=== PATIENT | female | born 1955 | race Caucasian/White ===

== ENCOUNTER 2025-08-09 12:59 | Outpatient (REF) | payer MEDICARE, SELFPAY ==
[2025-08-09 15:16] LABS: Alanine Aminotransferase 11 U/L (0-31); Albumin Level 4.6 g/dL (3.5-5.0); Alkaline Phosphatase 77 U/L (39-117); Anion Gap 9 (12-20); Aspartate Amino Transferase 22 U/L (5-31); Blood Urea Nitrogen 21 mg/dL (9-16); Calcium 9.2 mg/dL (8.4-10.2); Carbon Dioxide 32 mmol/L (22-29); Chloride 103 mmol/L (96-108); Estimated Glomerular Filt Rate > 60; Potassium 5.1 mmol/L (3.3-5.1); Sodium 139 mmol/L (135-145); Total Protein 7.3 g/dL (6.5-8.0)
[2025-08-10 21:28] LABS: Lyme Abs Screen <0.90 index
== END 2025-08-09 13:00 | disposition home or self-care (01) ==
LOC: HO.LAB 12:59
PROVIDERS: PCP Internal Medicine; Visit Provider Psychiatry & Neurology Neurology
DX: G43.719 Chronic migraine without aura, intractable, without status migrainosus (principal); Z01.84 Encounter for antibody response examination; Z79.899 Other long term (current) drug therapy
CPT/HCPCS: 36415; 80053; 82550; 85652; 86141; 86617; 86618

== ENCOUNTER 2025-08-09 12:59 | Outpatient (AMB) | payer OTHER, SELFPAY ==
--- NOTE | 2025-08-09 13:03 | A.OFFVIS_ITS ---
Intake Visit Reasons: ENP-? Siz/Convulsion one mo ago Allergies sumatriptan (From Imitrex) Allergy (Severe, Verified 08/09/25 13:23) Anaphylaxis Medication List - Last Reconciled 08/09/25 by Lea Coyne MD atorvastatin 20 mg PO DAILY citalopram 40 mg PO DAILY citalopram 20 mg PO DAILY divalproex ER 500 mg PO DAILY donepezil 5 mg PO DAILY metoprolol succinate ER 25 mg PO DAILY omeprazole 20 mg PO DAILY HPI Comments Details: The patient is a 69-year-old female presenting with migraine headaches. She has experienced migraines for as long as she remembers, characterized by severe, pounding headaches that initiate on the right side and sometimes envelop the whole head. Occurring at least three times per week with each episode lasting one to two days, these migraines substantially impair her daily functioning. Laying down does not provide relief, and changes in posture do not alter the intensity. Prior medication attempts like Imitrex were stopped due to an anaphylactic reaction. Other drugs, including metoprolol, Depakote, and citalopram, have not provided sufficient relief. She recalls receiving a recommendation for Botox injections from Dr. Barbosa, but insurance limitations prevented their administration. The frequency of her headaches, as expressed, could reach up to 15 per month. Despite ongoing treatments, including a recent prescription for a nightly migraine medication, the impact on her life remains severe, with significant dizziness and nausea accompanying the pain. No brain MRI has been conducted to date. [facility] Medical History (Updated 08/09/25 @ 13:23 by Lea Coyne MD) Seizures Review of Systems Const Details: - Neurological: Reports migraine headaches, dizziness, memory issues - Ophthalmologic: Reports eye pain associated with migraines - Gastrointestinal: Reports nausea during migraines - Musculoskeletal: Denies widespread body pain; reports headache from neck upward - General: Reports frequent and debilitating headaches Physical Exam Neuro Other: Mental Status: Alert and oriented to person, place, and time. Normal attention. Normal spontaneous speech, fluency, and comprehension. Affect is flat and anxious. Cranial Nerves: CN II: Visual cheung full to confrontation, visual acuity intact. CN III, IV, : Pupils equal, round, reactive to light and accommodation. Extraocular movements are normal. CN V: Facial sensation is normal. CN VII: Facial movements symmetrical. CN VIII: Hearing intact to bedside conversation is normal. CN IX, X: Palate elevates symmetrically. CN XI: Shoulder shrug and head turn symmetrical. CN XII: Tongue midline without atrophy or fasciculations. Motor: Bulk and tone normal in all extremities. No significant muscle weakness in arms and legs. No drift. Reflexes: Deep tendon reflexes 2+ and symmetric. Plantar response down-going bilaterally. Slow and cautious gait. Extrapyramidal: Full facial expressions and blinking. No rigidity. Movements are appropriate with no tremor or abnormality. Speech: Normal; no dysarthria or tremor. Assessment & Plan Assessment & Plan (1) Chronic migraine without aura, intractable, without status migrainosus: Comment: Meds tried: Depakote, Metoprolol, Citaloprim, Imitrex (allergic), Code(s): G43.719 - Chronic migraine without aura, intractable, without status migrainosus Category: Medical Plan Impression recommendations: 69 years old woman with chronic migraine type of headaches occurring quite frequently. She had tried few medicines without relief. Initial testing was recommended in this type of patient especially in this age group to rule out any alternate etiologies. Depending upon results of these test, further management will be discuss next time. Orders: Orders MR head/brain wo/w con Today G43.719 - Chronic migraine without aura, intractable, without status migrainosus CRP High Sensitivity Today G43.719 - Chronic migraine without aura, intractable, without status migrainosus Creatine Kinase Total Today G43.719 - Chronic migraine without aura, intractable, without status migrainosus Erythrocyte Sedimentation Rate Today G43.719 - Chronic migraine without aura, intractable, without status migrainosus Lyme IgG/IgM w/reflex to WB Today G43.719 - Chronic migraine without aura, intractable, without status migrainosus Comprehensive Met. Panel Today G43.719 - Chronic migraine without aura, intractable, without status migrainosus Coding Level of Care Code New Pt Level 4 (45398) Diagnoses Chronic migraine without aura, intractable, without status migrainosus G43.71
--- OUTSIDE RECORDS SUMMARY | 2025-08-09 15:26 | XMS_ITS | Clinical Summary ---
Author Organization [facility] Address [address] [place] [address] Phone Care Team Providers Care Refractory Tile Helper Name Role Phone Keren Gates MD Primary Care Provider [phone] Surgical History Surgery Date Site/Laterality Comments BREAST LUMPECTOMY Medical History Medical History Date Comments Breast cancer ([facility] V24, [facility] V28) Social History Tobacco Use Types Packs/Day Years Used Date Smoking Tobacco: Never Assessed Comments No Sex and Gender Information Value Date Recorded Sex Assigned at Female 09/26/2024 3:05 PM EST Legal Sex Female 7:27 AM EST Gender Identity Female 09/26/2024 3:05 PM EST Sexual Orientation Straight 09/26/2024 3: 05 PM EST Obstetrics History Para Term AB IAB SAB Ectopic Multiple Livin g Live Births 3 Last Filed Vital Signs Vital Sign Reading Time Taken Comments Blood Pressure - - Pulse - - Temperature - - Respiratory Rate - - Oxygen Saturation - - Inhaled Oxygen Concentration - - Weight 51.3 kg (113 lb) 10/03/2024 3:03 PM EST Height 165.1 cm (5' 5 ) 10/03/2024 3:03 PM EST Body Mass Index 18.8 10/03/2024 3:03 PM EST Plan of Treatment Health Maintenance Due Date Last Done Comments Zoster Vaccines (1 of 2) 2006 Pneumococcal Vaccine: 50+ Years (2 of 2 - PCV) 09/01/2021 09/01/2020 Colorectal Cancer Screening: Colonoscopy 2022 Falls Risk Assessment 2022 Hepatitis C Screening 2022 Medicare Annual Wellness Visit 2022 Osteoporosis Screening (Bone Density Screening) 2022 Social Influencers of Health Screening 2022 Depression Screening 11/16/2024 COVID-19 Vaccine (3 - season) 2025 07/26/2021, 06/28/2021 Influenza Vaccine (#1) 2025 4, 08/07/2022, 09/02/2021, Additional history exists Breast Cancer Screening 10/03/2026 10/03/20 24, 03/11/2023, 05/24/2021 RSV Immunization Adult Patients (1 - 1-dose 75+ series) 2031 DTaP,Tdap,and Td Vaccines (2 - Td or Tdap) 08/28/2033 08/28/2023 HIB Vaccines Aged Out No longer eligi ble based on patient's age to complete this topic HPV Vaccines Aged Out No longer eligi ble based on patient's age to complete this topic Hepatitis A Vaccines Aged Out No long er eligible based on patient's age to complete this topic Hepatitis B Vaccines Aged Out No long er eligible based on patient's age to complete this topic IPV Vaccines Aged Out No longer eligi ble based on patient's age to complete this topic MMR Vaccines Aged Out No longer eligi ble based on patient's age to complete this topic Meningococcal ACWY Vaccine Aged Out N o longer eligible based on patient's age to complete this topic Meningococcal B Vaccine Aged Out No l onger eligible based on patient's age to complete this topic RSV Immunization Patients Under 20 months Aged Out No longer eligible based on patient's age to complete this topic Varicella Vaccines Aged Out No longer eligible based on patient's age to complete this topic Procedures Procedure Name Priority Date/Time Associated Diagnosis Comments MG MAMMO DIGITAL SCREENING W SHAUN BILAT Routine 10/03/2024 3:05 PM EST Encounter for screening mammogram for breast cancer from Last 3 Months or Most Recently Relevant to Health Maintenance Results * MG Mammo Digital Screening w Shaun bilat (10/03/2024 3:05 PM EST) Anatomical Region Laterality Modality Breast Bilateral Mammography 10/04/2024 10:1 8 AM EST Impressions 10/04/2024 10:23 AM EST No mammographic evidence of malignancy. A negative mammogram in the presence of a clinically suspicious palpable abnormality does not preclude the possibility of malignancy or alter the indications for biopsy. PQRI CPT II 3342F Code 87587, 99330 PQRI 225 CPT II 7025F TISSUE DENSITY: There are scattered areas of fibroglandular density. (BI-RADS category B) IMPRESSION: Benign. BI-RADS CATEGORY: 2 - BENIGN RECOMMENDATION: Screening bilateral mammogram is recommended in 1 year. Mammo Location: [facility], [address] [place] [address] -------- FINAL REPORT -------- Dictated By: Migue Walker Dictated Date: 10/04/2024 10:18 ET Assigned Physician: Migue Walker Reviewed and Electronically Signed By: Migue Walker Signed Date: 10/04/2024 10:23 ET Workstation ID: [id number] Transcribed By: Self Edit Transcribed Date: 10/04/2024 10:18 ET Narrative 10/04/2024 10:23 AM EST CLINICAL: The patient is a 68 years Female presenting for routine screening mammography. The patient has a personal history of left breast cancer treated with lumpectomy and radiation in 2001. The patient also has a family history of breast cancer involving an aunt. COMPARISON: Most recently 03/11/2023 and most remotely 08/24/2017. TECHNIQUE: Full-field digital mammography of the breasts bilaterally consisting of tomosynthesis in MLO and CC projection is performed in the [employer]ae 2000-D unit. Computer aided detection utilizing the iCAD system was utilized. FINDINGS: The breasts are again seen to be composed of a combination of fatty and fibroglandular elements. Scattered benign calcifications, including a group superiorly in the left breast, are without suspicious interval change. There is no suspicious cluster of microcalcifications, mass, or area of architectural distortion. There is no skin thickening or nipple retraction. Procedure Note Migue Walker MD - 10/04/2024 CLINICAL: The patient is a 68 years Female presenting for routinescreening mammography. The patient has a personal history of left breastcancer treated with lumpectomy and radiation in 2001. The patient alsohas a family history of breast cancer involving an aunt. COMPARISON: Most recently 03/11/2023 and most remotely 08/24/2017. TECHNIQUE: Full-field digital mammography of the breasts bilaterallyconsisting of tomosynthesis in MLO and CC projection is performed in the[employer]he 2000-D unit. Computer aided detection utilizing the [employer] Technology[employer]system was utilized. FINDINGS: The breasts are again seen to be composed of a combination offatty and fibroglandular elements. Scattered benign calcifications,including a group superiorly in the left breast, are without suspiciousinterval change. There is no suspicious cluster of microcalcifications,mass, or area of architectural distortion. There is no skin thickening ornipple retraction. IMPRESSION: No mammographic evidence of malignancy. A negative mammogram in the presence of a clinically suspicious palpableabnormality does not preclude the possibility of malignancy or alter theindications for biopsy. PQRI CPT II 3342F Code 12270, 18318 PQRI 225 CPT II 7025F TISSUE DENSITY: There are scattered areas of fibroglandular density.(BI-RADS category B) IMPRESSION: Benign. BI-RADS CATEGORY: 2 - BENIGN RECOMMENDATION: Screening bilateral mammogram is recommended in 1 year. Mammo Location: [facility], [address] [place] [address] -------- FINAL REPORT -------- Dictated By: Migue Wlaker Dictated Date: 10/04/2024 10:18 ET Assigned Physician: Migue Walker Reviewed and Electronically Signed By: Migue Walker Signed Date: 10/04/2024 10:23 ET Workstation ID: [id number] Transcribed By: Self Edit Transcribed Date: 10/04/2024 10:18 ET Keren Gates MD IMG BI PROCEDURES Final Result from Last 3 Months or Most Recently Relevant to Health Maintenance Insurance [employer] MEDICARE Care Teams Refractory Tile Helper Relationship Specialty Start Date End Date Keren Gates MD [address] [place] [address] PCP - General Internal Medicine 09/26/24
--- OUTSIDE RECORDS SUMMARY | 2025-08-09 15:26 | XMS_ITS | Clinical Summary ---
[facility] Address [address] [place] [address] Care Team Providers Care Humidifier Operator Name Role Phone Unknown, Primary Care Provider Unavailabl e Social History Tobacco Use Types Packs/Day Years Used Date Smoking Tobacco: Never Assessed Sex and Gender Information Value Date Recorded Sex Assigned at Not on file Gender Identity Not on file Sexual Orientation Not on file Job Start Date Occupation Industry Not on file Not on file Not on file Plan of Treatment Health Maintenance Due Date Last Done Comments Hepatitis C Screening 1955 COVID-19 Vaccine (#1) 04/19/1957 Depression Screening 1968 Preventative Health Evaluation 1974 DTap / Tdap / Td (1 - Tdap) 1975 Colon Cancer Screening (Colonoscopy) 2001 Breast Cancer Screening (Mammogram) 2006 Shingrix-Zoster Vaccine (1 of 2) 2006 Fall Risk Assessment 2021 Osteoporosis Screening (DEXA Scan) 2021 Pneumococcal Vaccine (2 of 2 - PCV) 2021 09/01/2020 Influenza Vaccine (#1) 2025 RSV Adult > 60+ Yrs or Pregn ant (1 - 1-dose 75+ series) 2031 Hepatitis B Vaccines Aged Out No long er eligible based on patient's age to complete this topic RSV Ped < 20 months Aged Out No longe r eligible based on patient's age to complete this topic Care Teams Humidifier Operator Relationship Specialty Start Date End Date Unknown, PCP - General 05/08/23
== END 2025-08-09 13:32 | disposition home or self-care (01) ==
LOC: HO.HSM 13:00
PROVIDERS: PCP Internal Medicine; Visit Provider Psychiatry & Neurology Neurology
DX: G43.719 Chronic migraine without aura, intractable, without status migrainosus (principal)
CPT/HCPCS: 99204

== ENCOUNTER 2025-08-24 13:56 | Outpatient (REF) | payer MEDICARE, SELFPAY ==
[2025-08-24 17:22] LABS: Folate 13.9 ng/mL (> or = 4.0); Vitamin B12 526 pg/mL (200-900)
== END 2025-08-24 13:57 | disposition home or self-care (01) ==
LOC: HO.LAB 13:56
PROVIDERS: PCP Internal Medicine; Visit Provider Psychiatry & Neurology Neurology
DX: G43.719 Chronic migraine without aura, intractable, without status migrainosus (principal); G30.1 Alzheimer's disease with late onset; F02.B4 Dementia in other diseases classified elsewhere, moderate, with anxiety
CPT/HCPCS: 36415; 82607; 82746

== ENCOUNTER 2025-08-24 13:56 | Outpatient (AMB) | payer OTHER, SELFPAY ==
--- NOTE | 2025-08-24 14:15 | A.OFFVIS_ITS ---
Intake Visit Reasons: 2 weeks GARCIA Allergies sumatriptan (From Imitrex) Allergy (Severe, Verified 08/09/25 13:23) Anaphylaxis HPI Comments Details: The patient is a 69-year-old female presenting with persistent headaches and cognitive decline. She has a history of chronic migraines, unresponsive to historical therapeutic interventions. Her condition is further complicated by recent memory impairment, coinciding with a fall on October 14, resulting in hospitalization at [facility] and treatment for a urinary tract infection. A CT scan at that time was unremarkable. Her current medication regimen aimed at headache control includes Naproxen, recently begun, offering some relief for pain. The patient has adverse drug reactions to Sumatriptan and Imitrex, complicating her migraine treatment strategy. Importance is noted in her family history, suggesting a potential genetic predisposition to cognitive decline. An MRI is scheduled for the , and further diagnostic evaluation of her vitamin B12 level is warranted to explore possible contributions to her memory loss, given her age. This comprehensive assessment aims to elucidate her cognitive complaints and align her treatment accordingly. [facility] Medical History (Updated 08/24/25 @ 14:27 by Lea Coyne MD) Seizures Review of Systems Const Details: - Neurological: Reports persistent headaches; memory impairment observed. - Musculoskeletal: Reports pain secondary to recent fall involving ribs. - Genitourinary: Reports recent urinary tract infection treatment. - Allergy/Immunology: Reports allergic reactions to Sumatriptan and Imitrex. Physical Exam Neuro Other: Mental Status: Alert and oriented to person, place, and time. Normal attention. Normal spontaneous speech, fluency, and comprehension. Cranial Nerves: CN II: Visual cheung full to confrontation, visual acuity intact. CN III, IV, : Pupils equal, round, reactive to light and accommodation. Extraocular movements are normal. CN V: Facial sensation is normal. CN VII: Facial movements symmetrical. CN VIII: Hearing intact to bedside conversation is normal. CN IX, X: Palate elevates symmetrically. CN XI: Shoulder shrug and head turn symmetrical. CN XII: Tongue midline without atrophy or fasciculations. Slow and cautious gait. Extrapyramidal: Full facial expressions and blinking. No rigidity. Movements are appropriate with no tremor or abnormality. Speech: Normal; no dysarthria or tremor. Assessment & Plan Assessment & Plan (1) Chronic migraine without aura, intractable, without status migrainosus: Comment: Meds tried: Depakote, Metoprolol, Citaloprim, Imitrex (allergic), Code(s): G43.719 - Chronic migraine without aura, intractable, without status migrainosus Category: Medical (2) Alzheimer dementia: Code(s): G30.9 - Alzheimer's disease, unspecified; F02.80 - Dementia in other diseases classified elsewhere, unspecified severity, without behavioral disturbance, psychotic disturbance, mood disturbance, and anxiety Category: Medical Qualifiers: Alzheimer's disease onset: late onset Dementia severity: moderate Dementia behavioral or psychological symptom: with anxiety Qualified Code(s): G30.1 - Alzheimer's disease with late onset; F02.B4 - Dementia in other diseases classified elsewhere, moderate, with anxiety Plan Impression: a: Dementia probably of Alzheimer type b: Chronic migraine Rec: a: MRI is scheduled in a few days b: Naproxen PRN for headaches c: B12/folate levels Orders: Orders Vitamin B12 and Folate Today G43.719 - Chronic migraine without aura, intractable, without status migrainosus Coding Level of Care Code Est Pt Level 4 (06784) Diagnoses Chronic migraine without aura, intractable, without status migrainosus G43.719 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
== END 2025-08-24 14:28 | disposition home or self-care (01) ==
LOC: HO.HSM 13:57
PROVIDERS: PCP Internal Medicine; Visit Provider Psychiatry & Neurology Neurology
DX: G43.719 Chronic migraine without aura, intractable, without status migrainosus (principal); G30.1 Alzheimer's disease with late onset; F02.B4 Dementia in other diseases classified elsewhere, moderate, with anxiety
CPT/HCPCS: 99214

== ENCOUNTER → 2025-08-31 15:52 | Outpatient (BNV) | payer MEDICARE, SELFPAY | PROVIDERS: PCP Internal Medicine; Visit Provider Radiology Diagnostic Radiology | DX: G43.719 Chronic migraine without aura, intractable, without status migrainosus (principal); G31.9 Degenerative disease of nervous system, unspecified | CPT/HCPCS: 70553 ==

== ENCOUNTER 2025-08-31 15:56 | Outpatient (REF) | payer MEDICARE, SELFPAY ==
--- NOTE | ~2025-08-31 | MR_ITS ---
EXAMINATION: MR BRAIN WITHOUT AND WITH CONTRAST CLINICAL INFORMATION: Migraine COMPARISON: None available. TECHNIQUE: Multiplanar, multisequence MRI of the brain was obtained before and after the intravenous administration of 5.0 mL gadolinium based (Gadavist) without reported immediate complications.. FINDINGS: No restricted diffusion. No acute intracranial hemorrhage, mass effect, midline shift, hydrocephalus or herniation. There are a few, scattered punctate susceptibility signal in the cerebellar vermis and bitemporal. Hodge-white matter differentiation is normal. Bilateral multifocal patchy and punctate deep periventricular white matter hyperintense T2 FLAIR signal involving centrum semiovale and de la cruz radiata more pronounced in the biparietal lobes. Prominence of the extra-axial CSF spaces cerebral sulci and ventricles, likely central loss. There is a 2 cm extra-axial nonenhancing no restricted diffusion CSF equivalent signal in the left frontoparietal convexity. There is a nonenhancing linear shaped CSF equivalent abnormality in the midline of the dorsal mid paulette. No abnormal enhancement within the intra-axial or the extra-axial compartments of the cranium. Flow-void signal within the main cerebral vessels is normal. Main cerebral venous veins and sinuses are patent. Sellar/suprasellar region is normal. Craniocervical junction demonstrates normal position of the cerebellar tonsils. 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 Mucosal thickening in the paranasal sinuses. MR/MR head/brain wo/w con IMPRESSION: No acute stroke or acute brain abnormality. Probable small vessel occlusive disease. Global cerebral atrophy, mild to moderate. Old microhemorrhages likely related to hypertension. Electronically signed by: Ronal Lundy MD 09/01/2025 07:04 AM EDT
--- OUTSIDE RECORDS SUMMARY | 2025-08-31 19:35 | XMS_ITS | Data Portability ---
Author Organization [place] [facility] [place] Address [address] [place] [address] Assessment Encounter Date Assessment Date Assessment LastModified by Organization Details LastModified Time 03/23/2023 03/23/2023 Nonspecific righ t hip pain with intermittent mechanical type pain. Her x-rays show no evidence of obvious degenerative changes. Given the persistent nature of her symptoms I recommend an MRI to further elucidate a potential etiology. Hopefully this will guide our ability to provide some treatment recommendations. Possibility of a labral tear. Cannot rule out an occult insufficiency fracture or stress injury. She is comfortable with the plan as outlined. She will curtail her activities to help rest the hip. Questions invited and answered. Not available 03/26/2023 14:25:56 04/20/2023 04/20/2023 Ongoing somewhat nonspecific right hip pain. This remains difficult to localize. Her MRI was reviewed which showed some mild nonspecific degenerative changes with edema in the superior lateral acetabulum. She has some mild tendinosis in the greater trochanteric region and proximal hamstrings. I reviewed treatment options. She is going to continue activity modification and a home exercise program. She feels her symptoms are bothersome enough that we will try a fluoroscopically guided intra-articular right hip injection for both diagnostic and therapeutic purposes. We will see how she responds to that. Greater than 30 minutes was spent with the encounter today, including face to face time with the patient, documentation, review of records/imaging if applicable, and coordination of care. PRIOR: Nonspecific right hip pain with intermittent mechanical type pain. Her x-rays show no evidence of obvious degenerative changes. Given the persistent nature of her symptoms I recommend an MRI to further elucidate a potential etiology. Hopefully this will guide our ability to provide some treatment recommendations. Possibility of a labral tear. Cannot rule out an occult insufficiency fracture or stress injury. She is comfortable with the plan as outlined. She will curtail her activities to help rest the hip. Questions invited and answered. [email or web address] Not available 04/20/2023 13:53:45 06/29/2023 06/29/2023 Overall, she see ms somewhat improved. She is actually having less falls. Most of her pain today is posterior around the right SI joint rather than the hip itself. Her x-rays were reassuring with regards to the hip joint, no evidence of progressive arthritis. I reviewed treatment options. She is going to continue home exercise program. We will have her see physiatry for an evaluation of her right SI joint, possible she could benefit from an injection if pain persists in that region. She does not have much in the way of trochanteric tenderness today, but if her symptoms were to refocus in that area a trochanteric injection could be considered. She is comfortable with the plan as outlined. Greater than 20 minutes was spent with the encounter today, including face to face time with the patient, documentation, review of records/imaging if applicable, and coordination of care. PRIOR: Ongoing somewhat nonspecific right hip pain. This remains difficult to localize. Her MRI was reviewed which showed some mild nonspecific degenerative changes with edema in the superior lateral acetabulum. She has some mild tendinosis in the greater trochanteric region and proximal hamstrings. I reviewed treatment options. She is going to continue activity modification and a home exercise program. She feels her symptoms are bothersome enough that we will try a fluoroscopically guided intra-articular right hip injection for both diagnostic and therapeutic purposes. We will see how she responds to that. PRIOR: Nonspecific right hip pain with intermittent mechanical type pain. Her x-rays show no evidence of obvious degenerative changes. Given the persistent nature of her symptoms I recommend an MRI to further elucidate a potential etiology. Hopefully this will guide our ability to provide some treatment recommendations. Possibility of a labral tear. Cannot rule out an occult insufficiency fracture or stress injury. She is comfortable with the plan as outlined. She will curtail her activities to help rest the hip. Questions invited and answered. Not available 06/29/2023 14:43:47 08/24/2023 08/24/2023 Awilda continues t o have pain primarily coming from her SI joint. She remains minimally symptomatic about the hip itself. Her x-rays today are largely unchanged from previous imaging, no evidence of acute injury from her recent fall. She is going to follow-up with [facility] to reschedule her SI joint injection. In the meantime she will continue her home exercise program as tolerated and try anti-inflammatorie s as needed with appropriate over the counter dosing and GI precautions. Questions invited and answered. Patient verbalizes understanding and agreement with plan. PRIOR : Overall, she seems somewhat improved. She is actually having less falls. Most of her pain today is posterior around the right SI joint rather than the hip itself. Her x-rays were reassuring with regards to the hip joint, no evidence of progressive arthritis. I reviewed treatment options. She is going to continue home exercise program. We will have her see physiatry for an evaluation of her right SI joint, possible she could benefit from an injection if pain persists in that region. She does not have much in the way of trochanteric tenderness today, but if her symptoms were to refocus in that area a trochanteric injection could be considered. She is comfortable with the plan as outlined. Greater than 20 minutes was spent with the encounter today, including face to face time with the patient, documentation, review of records/imaging if applicable, and coordination of care. PRIOR: Ongoing somewhat nonspecific right hip pain. This remains difficult to localize. Her MRI was reviewed which showed some mild nonspecific degenerative changes with edema in the superior lateral acetabulum. She has some mild tendinosis in the greater trochanteric region and proximal hamstrings. I reviewed treatment options. She is going to continue activity modification and a home exercise program. She feels her symptoms are bothersome enough that we will try a fluoroscopically guided intra-articular right hip injection for both diagnostic and therapeutic purposes. We will see how she responds to that. PRIOR: Nonspecific right hip pain with intermittent mechanical type pain. Her x-rays show no evidence of obvious degenerative changes. Given the persistent nature of her symptoms I recommend an MRI to further elucidate a potential etiology. Hopefully this will guide our ability to provide some treatment recommendations. Possibility of a labral tear. Cannot rule out an occult insufficiency fracture or stress injury. She is comfortable with the plan as outlined. She will curtail her activities to help rest the hip. Questions invited and answered. Not available 08/24/2023 21:48:46 Plan of Treatment Reminders Order Date Submit Date Provider Last Modified By Organization Details Last Modified Time Details Appointments None recorded. Lab None recorded. Referral physical medicine and rehabilitat ion referral - Right SI joint pain, ? injection 2022 023 [email or web address] [facility], [address] [place], [address], 3 11:05:06 interventio nal radiologist referral - right hip intra-artic ular cortisone injection 2022 023 [email or web address] Not available 10:50:05 Procedures None recorded. Surgeries None recorded. Imaging XR, hip, unilateral, 2 or 3 view 2022 023 [email or web address] [facility], [address], [place], [address], 3 16:11:58 XR, hip, unilateral, 2 or 3 view 2022 023 [email or web address] [facility], [address], [place], [address], 3 14:44:49 MRI, hip, w/o contrast 2022 023 [facility], [address] [place], [address], 3 11:48:27 Medication Orders None recorded. Patient TargetsNo targets recorded. Patient Instructions Encounter Date Encounter Id Patient Instructions Last Modified By Organization Details Last Modified Time 06/29/2023 [id number] views of the right hip including an AP pelvis were obtained on 06/29/2023 in the [place] office. Joint spaces well-maintained. Trace calcification projects adjacent to the superior lateral acetabulum. No acute fracture appreciated. Pubic symphysis intact. Visualized portions of the SI joints appear intact. Findings: Well-maintained joint space right hip. No evidence for acute fracture. Interpreted by: Carlos Ruiz MD Not available 06/29/2023 14:30:57 08/24/2023 [id number] views of the right hip were obtained today 08/24/2023 in the [place] office. Joint spaces well-maintained. No acute or occult fracture appreciated. Marginal calcification projects adjacent to the superior lateral acetabulum. Visualized portions of the SI joints appear intact. Findings: Well maintained joint space. Interpreted by: Percy Smiley PA-C Not available 08/24/2023 21:42:53 Reason for Referral Interventional Radiologist R thomasal for Pain of right hip joint right hip pain right hip intra-articular cortisone injection Referring Physician: Carlos Ruiz, Orthopedic Surgery, Encounter Date: 04/20/2023 [facility] Medicine [facility] Re[facility] litation Referral for Pain in right sacroiliac joint Right SI joint pain, ? injection Referring Physician: Carlos Ruiz, Orthopedic Surgery, Encounter Date: 06/29/2023 Results Created Date Observation Date Name Description Value Unit Range Abnormal Flag Note LastModifiedBy Organization Detail LastModifiedTime 04/15/20 23 MRI, hip, w/o contr ast No observ ation record ed. [email or web address] [facility] [address] [place], [address], 04/22/2023 11:48:38 05/12/20 23 05/12/2023 injec tion, hip, fluor o tomeka nce (PROC ) No observ ation record ed. [email or web address] [facility] [address] [facility] [address], [place], [address], 05/12/2023 20:40:54 Result Notes None recorded. Problems Name Problem SNOMED Code Status Onset Date Resolution Date Notes Provider Name and Address Organization Details Recorded Time Pain of right hip joint 0873072060881 02 Active 2022 Carlos Ruiz MD [address] [facility] [address], [place], [address] , [place] [facility] 3 16:33:34 Pain in right sacroiliac joint 5057399788000 9107 Active 2022 Carlos Ruiz MD [address] [facility], [place], [address] , [place] [facility] 3 14:39:02 Problem Notes None recorded. Medical Equipment None Reported. Allergies Allergen ID Allergen Name Allergen Category Reaction Reaction Severity Criticality Documentation Date Start Date Code Code System Note Provider Name and Address Organization Details Recorded Time 3675 Imitrex medicatio n Not available Not available Not available 03/23/2023 34484 3 Rx[facility] Crystal Clark null, [place] - [facility] 3 16:08:26 Medications Name Sig Start Date Stop Date Status Note LastModified by Organization Details LastModified Time atorvastatin 20 mg tablet TAKE 1 TABLET BY MOUTH EVERYDAY AT BEDTIME active Not Available Not Available No t Available oxybutynin chloride ER 10 mg tablet,exten ded release 24 hr TAKE 1 TABLET BY MOUTH EVERY DAY active Not Available Not Available No t Available ciprofloxaci n 250 mg tablet TAKE 1 TABLET BY MOUTH EVERY 12 HOURS active Not Available Not Available No t Available zolmitriptan 5 mg disintegrati ng tablet DISSOLVE 1 TABLET IN MOUTH NEEDED AT ONSET OF HEADACHE, MAY REPEAT IN 2 HOURS active Not Available Not Available N ot Available sulfamethoxa zole 800 mg-trimethop rim 160 mg tablet TAKE 1 TABLET BY MOUTH TWICE A DAY active Not Available Not Available No t Available citalopram 20 mg tablet TAKE 1 TABLET BY MOUTH EVERY DAY DIRECTED active Not Available Not Available No t Available divalproex ER 500 mg tablet,exten ded release 24 hr TAKE 1 TABLET BY MOUTH EVERY DAY active Not Available Not Available No t Available omeprazole 20 mg capsule,lane yed release TAKE 1 CAPSULE BY MOUTH EVERY DAY active Not Available Not Available No t Available metoprolol succinate ER 25 mg tablet,exten ded release 24 hr TAKE 1 TABLET BY MOUTH EVERY DAY active Not Available Not Available No t Available ergocalcifer ol (vitamin D2) 1,250 mcg (50,000 unit) capsule TAKE ONE CAPSULE ONCE A WEEK active Not Available Not Available Not Available rizatriptan 5 mg tablet TAKE 1 TABLET BY MOUTH ONCE DAILY NEEDED AT ONSET OF MIGRAINE DIRECTED active Not Available Not Available No t Available GaviLyte-G 236 gram-22.74 gram-6.74 gram-5.86 gram oral solution TAKE 8 OUNCE BY MOUTH DIRECTED active Not Available Not Available No t Available BinaxNOW COVID-19 Ag Self Test kit REFER TO MANUFACTURE R INSTRUCTION S INCLUDED IN PACKAGING active Not Available Not Available No t Available Vitals Date Recorded Body height Body mass index (BMI) Body weight Provider Name and Address Organization Details Last Updated DateTime 03/23/2023 162.56 cm 19.7 kg/m2 85978.12 g Cristine Clark [facility] 03/23/2023 16:08:38 Date Recorded Body height Body mass index (BMI) Body weight Provider Name and Address Organization Details Last Updated DateTime 04/20/2023 162.56 cm 19.2 kg/m2 25275.35 g Cristine Clark [facility], [facility] 04/20/2023 13:26:26 Date Recorded Body height Body mass index (BMI) Body weight Provider Name and Address Organization Details Last Updated DateTime 08/24/2023 162.56 cm 19.2 kg/m2 83465.35 g Rossy Dominguez [facility] 08/24/2023 13:20:08 Social History Question Answer Notes LastModified by Organizat ion Details LastModified Time Tobacco Smoking Status Former Smoker Cristine martinez, [facility] 03/23/2023 16:08:57 When Did You Quit Smoking? 11-15yearssi ncelastcigar ette [email or web address] Information not available 03/23/2023 Sex: Unknown Functional Status Question Answer Note LastModified by Organizat ion Details LastModified Time Do you use any illicit or recreational drugs? No [email or web address] Information not available 03/23/2023 Do you or have you ever used any other forms of tobacco or nicotine? No [email or web address] Information not available 03/23/2023 What is your level of alcohol consumption? None [email or web address] Information not available 03/23/2023 Mental Status None recorded. Family History Relationship Description Onset Age of this Age Resolved Age Notes LastModified by Organization Details LastModified Time Father Hyperlipidem ia [email or web address] Not available 2022 16:09:17 Father Family history of malignant neoplasm [email or web address] Not available 2022 16:09:38 Mother Hyperlipidem ia [email or web address] Not available 2022 16:09:17 Mother Family history of malignant neoplasm [email or web address] Not available 2022 16:09:38 Brother Family history of malignant neoplasm [email or web address] Not available 2022 16:09:38 Sister Family history of malignant neoplasm [email or web address] Not available 2022 16:09:38 Medical History Condition Response Cancer Y Gynecological HistoryNo gynecological history recorded. Obstetrics History GPAL:G 0 P 0 0 0 0 Past Encounters Encounter ID Performer Location Encounter Start Date Encounter Closed Date Diagnosis/Indication Diagnosis SNOMED-CT Code Diagnosis ICD10 Code Diagnosis IMO Codes Diagnosis Note [id number] MD LYRIC Vickers [facility] [address] [facility] [address] [place] [address] 03/23/2023 15:04:47 03/23/2023 16:41:16 Pain of right hip joint 2433935692 92392 M25.551 [id number] MD LYRIC Vickers [place] [address] [facility] [address] [place] [address] 04/20/2023 13:13:34 04/20/2023 13:51:56 Pain of right hip joint 9455871564 02504 M25.551 [id number] MD LYRIC Vickers [facility] [address] [facility] [address] [place] [address] 06/29/2023 14:14:00 06/29/2023 14:43:12 Pain of right hip joint 3147545175 97945 M25.551 Pain in ri ght sacroiliac joint 3156848812 3145883 M53.3 [id number] YOHANA GLASER [facility] [address] [facility] [address] [place] [address] 08/24/2023 13:13:05 08/24/2023 14:01:35 Pain of right hip joint 5943903049 19618 M25.551 Pain in ri ght sacroiliac joint 1292564414 2877011 M53.3 Health Concerns Section Related Observation LastModified by Organization Detai ls LastModified Time None Recorded Concern Status LastModified by Organization Details LastModified Time None Recorded Advance Directives Directive None Recorded Payers Insurance Date Sequence Insurance Name Policy Number Policy Banda Covered Member ID Banda Member ID Guarantor Name 08/21/2023 1 [facility] (MEDICARE REPLACEMENT/A DVANTAGE - HMO) [id number] Awilda Baez [id number] Awilda Baez Notes Date Note Type Note Provider Name and Address Organization Details Recorded Time 03/23/2023 text/html ROS as noted in the HPI Patient presents for an evaluation of right hip pain. She cannot recall any injury. Symptoms have been present for 2-1/2 to 3 months. She states the hip just grabs without any warning. At times the pain can radiate down the thigh. She had x-rays done recently which were interpreted as normal. She denies any symptoms on the contralateral side. She is having some right knee pain but she thinks that separate and distinct and its not nearly as bad as the current hip symptomatology. When she has the pain it can range between a 3 to a 6 on a 10 point scale. It feels deep inside. She is retired. She has a history of cancer. She has a history of cervical spine surgery with an artificial disc and cage. Carlos Ruiz MD [address] [place] [address], [phone], [place] - [facility] 03/26/2023 14:26:06 04/20/2023 text/html ROS as noted in the HPI 67-year-old female returns for an evaluation of her ongoing intermittent right hip pain. Occasionally the hip just gives out. She points vaguely over the anterior, lateral, and posterior hip as the location of pain. She rates the pain today as a 2 to a 3 on a 10 point scale. She has been diligent about home exercises and trying to be as active as she can. She brings her MRI in for review. PRIOR:Patient presents for an evaluation of right hip pain. She cannot recall any injury. Symptoms have been present for 2-1/2 to 3 months. She states the hip just grabs without any warning. At times the pain can radiate down the thigh. She had x-rays done recently which were interpreted as normal. She denies any symptoms on the contralateral side. She is having some right knee pain but she thinks that separate and distinct and its not nearly as bad as the current hip symptomatology. When she has the pain it can range between a 3 to a 6 on a 10 point scale. It feels deep inside. She is retired. She has a history of cancer. She has a history of cervical spine surgery with an artificial disc and cage. Carlos Ruiz MD [address], [place], [address], [place] [facility] 04/20/2023 19:56:37 06/29/2023 text/html ROS as noted in the HPI 67-year-old female returns for an evaluation of her right hip. She states that since I saw her last she had a couple of falls, one on 05/14/2023 and a second on 05/16/2023. Overall, she states that her falls have been less frequent since receiving the intra-articular cortisone injection. She thinks it was of some benefit but she has difficulty articulating how. She describes some achy soreness over the posterior pelvis on the right. She notes occasional but not consistent discomfort laying on her right side at night. She rates her pain between a 2 to a 6 on a 10 point scale at its worst. She denies radiating pain down the leg. She denies numbness or tingling. She denies bowel or bladder changes. In general she has been exercising and walking. PRIOR:67-year-old female returns for an evaluation of her ongoing intermittent right hip pain. Occasionally the hip just gives out. She points vaguely over the anterior, lateral, and posterior hip as the location of pain. She rates the pain today as a 2 to a 3 on a 10 point scale. She has been diligent about home exercises and trying to be as active as she can. She brings her MRI in for review. PRIOR:Patient presents for an evaluation of right hip pain. She cannot recall any injury. Symptoms have been present for 2-1/2 to 3 months. She states the hip just grabs without any warning. At times the pain can radiate down the thigh. She had x-rays done recently which were interpreted as normal. She denies any symptoms on the contralateral side. She is having some right knee pain but she thinks that separate and distinct and its not nearly as bad as the current hip symptomatology. When she has the pain it can range between a 3 to a 6 on a 10 point scale. It feels deep inside. She is retired. She has a history of cancer. She has a history of cervical spine surgery with an artificial disc and cage. Carlos Ruiz MD [address] [place] [address], [place], [address], [place] [facility] 06/29/2023 15:19:00 08/24/2023 text/html ROS as noted in the HPI Awilda presents to the office today to follow-up on her right hip beyer. Since her last visit she did have a fall on August 03 when she was standing on a chair trying to kill a bug and fell to the ground landing on her right side. She reports some pain and immbolity immediately following. She did not seek any formal treatment or evaluation, just icing and resting as needed. She reports the acute pain has mostly resolved, is back to her baseline pain on the backside of her hip, pointing to her SI joint. She was unable to get an injection done as [facility] due to scheduling conflicts and she has not followed up. Tylenol with some mild relief. She denies numbness or tingling. Denies groin pain. Denies changes in bowel or bladder habits. PRIOR:67-year-old female returns for an evaluation of her right hip. She states that since I saw her last she had a couple of falls, one on 05/14/2023 and a second on 05/16/2023. Overall, she states that her falls have been less frequent since receiving the intra-articular cortisone injection. She thinks it was of some benefit but she has difficulty articulating how. She describes some achy soreness over the posterior pelvis on the right. She notes occasional but not consistent discomfort laying on her right side at night. She rates her pain between a 2 to a 6 on a 10 point scale at its worst. She denies radiating pain down the leg. She denies numbness or tingling. She denies bowel or bladder changes. In general she has been exercising and walking. PRIOR:67-year-old female returns for an evaluation of her ongoing intermittent right hip pain. Occasionally the hip just gives out. She points vaguely over the anterior, lateral, and posterior hip as the location of pain. She rates the pain today as a 2 to a 3 on a 10 point scale. She has been diligent about home exercises and trying to be as active as she can. She brings her MRI in for review. PRIOR:Patient presents for an evaluation of right hip pain. She cannot recall any injury. Symptoms have been present for 2-1/2 to 3 months. She states the hip just grabs without any warning. At times the pain can radiate down the thigh. She had x-rays done recently which were interpreted as normal. She denies any symptoms on the contralateral side. She is having some right knee pain but she thinks that separate and distinct and its not nearly as bad as the current hip symptomatology. When she has the pain it can range between a 3 to a 6 on a 10 point scale. It feels deep inside. She is retired. She has a history of cancer. She has a history of cervical spine surgery with an artificial disc and cage. PERCY SMILEY PA-C [address] [place] [address], [phone], [place] - [facility] 08/24/2023 21:49:15 OBGyn Episode No OBEpisode recorded.
--- OUTSIDE RECORDS SUMMARY | 2025-08-31 19:35 | XMS_ITS | Clinical Summary ---
[facility] Organization [facility] Address [address] [place] [address] Care Team Providers Care Machinist Apprentice Wood Name Role Phone Unknown, Primary Care Provider [...] age to complete this topic Care Teams Machinist Apprentice Wood Relationship Specialty Start Date End Date Unknown, PCP - General 05/08/23
--- OUTSIDE RECORDS SUMMARY | 2025-08-31 19:35 | XMS_ITS | Clinical Summary ---
Author Organization [facility] Address [address] [place] [address] Phone Care Team Providers Care Hr Consultant Name Role Phone Keren Gates MD Primary Care Provider [phone] Surgical History Surgery Date Site/Laterality Comments BREAST LUMPECTOMY Medical History Medical History Date Comments Breast cancer ([facility] V24, [facility] V28) Social History Tobacco Use Types [...] Health Maintenance Due Date Last Done Comments Colorectal Cancer Screening: Colonoscopy 1956 Zoster Vaccines (1 of 2) 2006 Pneumococcal Vaccine: 50+ Years (2 of 2 - PCV) 09/01/2021 09/01/2020 Falls Risk Assessment 2022 Hepatitis C Screening [...] for biopsy. PQRI CPT II 3342F Code 23814, 36790 PQRI 225 CPT II 7025F TISSUE DENSITY: There are scattered areas of fibroglandular density. (BI-RADS category B) IMPRESSION: Benign. BI-RADS CATEGORY: 2 - BENIGN RECOMMENDATION: Screening bilateral mammogram is recommended in 1 year. Mammo Location: [facility], [address] [place] [address] -------- FINAL REPORT -------- Dictated By: Migue Walker Dictated Date: 10/04/2024 10:18 ET Assigned Physician: Migue Walker Reviewed and Electronically Signed By: Migue Walker Signed Date: 10/04/2024 10:23 ET Workstation ID: [id number] Transcribed By: Self Edit Transcribed Date: 10/04/2024 [...] and CC projection is performed in the Domo Safetye 2000-D unit. Computer aided detection utilizing the [...] MLO and CC projection is performed in theCuyanaographe 2000-D unit. Computer aided detection utilizing the CoinkiteDsystem was utilized. FINDINGS: The breasts are again [...] for biopsy. PQRI CPT II 3342F Code 90266, 00727 PQRI 225 CPT II 7025F TISSUE DENSITY: There are scattered areas of fibroglandular density.(BI-RADS category B) IMPRESSION: Benign. BI-RADS CATEGORY: 2 - BENIGN RECOMMENDATION: Screening bilateral mammogram is recommended in 1 year. Mammo Location: [facility], [address] [place] [address] -------- FINAL REPORT -------- Dictated By: Migue Walker Dictated Date: 10/04/2024 10:18 ET Assigned Physician: Migue Walker Reviewed and Electronically Signed By: Migue Walker Signed Date: 10/04/2024 10:23 ET Workstation ID: [id number] Transcribed By: Self Edit Transcribed Date: 10/04/2024 10:18 ET Keren Gates MD IMG BI PROCEDURES Final Result from Last 3 Months or Most Recently Relevant to Health Maintenance Insurance [employer] MEDICARE Care Teams Hr Consultant Relationship Specialty Start Date End Date Keren Gates MD [address] [place] [address] PCP - General Internal Medicine 09/26/24
== END 2025-08-31 15:57 | disposition home or self-care (01) ==
LOC: HO.MRI 15:56
PROVIDERS: PCP Internal Medicine; Visit Provider Psychiatry & Neurology Neurology
DX: G43.719 Chronic migraine without aura, intractable, without status migrainosus (principal)
CPT/HCPCS: 70553; A9585

== ENCOUNTER 2025-09-27 15:55 | Outpatient (AMB) | payer OTHER, SELFPAY ==
--- NOTE | 2025-09-27 16:05 | A.OFFVIS_ITS ---
Intake Visit Reasons: 4 weeks Allergies sumatriptan (From Imitrex) Allergy (Severe, Verified 08/09/25 13:23) Anaphylaxis Medication List - Last Reconciled 09/27/25 by Lea Coyne MD atorvastatin 20 mg PO DAILY citalopram 40 mg PO DAILY citalopram 20 mg PO DAILY divalproex ER 500 mg PO DAILY donepezil 5 mg PO DAILY metoprolol succinate ER 25 mg PO DAILY omeprazole 20 mg PO DAILY HPI Comments Details: 69 years old woman with dementia and migraine without aura. She is presenting with cognitive decline and memory issues suspected to be related to Alzheimer's Disease. These symptoms have been progressing over approximately two to three years, with family history suggesting a predisposition toward Alzheimer's Disease. She reports significant memory lapses, repetitive speech, and episodes of confusion, complicating daily act ivities. The patient has a history of aggressive cancer treatments and is currently medicated with Citalopram for depression and anxiety. The degenerative nature of her condition is consistent with the progression observed in her mother and other relatives with Alzheimer?s Disease. Recently, an MRI ruled out any significant structural causes such as tumors. The initiation of Citalopram and its ongoing use signifies an attempt to manage her depressive symptoms, while Depakote use arises from an unclear origin. Her symptoms have escalated, emphasizing the progression of her Alzheimer?s Disease in line with historical family occurrences and present mental health challenges. [facility] Medical History (Updated 09/27/25 @ 16:20 by Lea Coyne MD) Seizures Review of Systems Narrative - Cognitive: Reports memory issues and confusion. - Psychological: Reports anxiety and depressive symptoms. - Neurological: Reports cognitive decline and forgetfulness. Physical Exam Neuro Other: Mental Status: She is alert and awake with normal spontaneity of speech fluency comprehension and flat to wake affect. Cranial Nerves: CN II: Visual cheung full to confrontation, visual acuity intact. CN III, IV, : Pupils equal, round, reactive to light and accommodation. Extraocular movements are normal. CN V: Facial sensation is normal. CN VII: Facial movements symmetrical. CN VIII: Hearing intact to bedside conversation is normal. CN IX, X: Palate elevates symmetrically. CN XI: Shoulder shrug and head turn symmetrical. CN XII: Tongue midline without atrophy or fasciculations. Deep tendon reflexes 2+ and symmetric. Plantar response down-going bilaterally. Gait and Station: No obvious gait abnormality. No ataxia or instability. Extrapyramidal: Full facial expressions and blinking. No rigidity. Movements are appropriate with no tremor or abnormality. Speech: Normal; no dysarthria or tremor. Results Reviewed Results Reviewed: Laboratory Tests 08/09/25 08/24/25 14:00 15:08 ESR 2 Vitamin B12 526 Folate 13.9 Lyme Screen IgG & IgM <0.90 Assessment & Plan Assessment & Plan (1) Chronic migraine without aura, intractable, without status migrainosus: Comment: Meds tried: Depakote, Metoprolol, Citaloprim, Imitrex (allergic), Code(s): G43.719 - Chronic migraine without aura, intractable, without status migrainosus Category: Medical (2) Alzheimer dementia: Comment: MRI brain wo at [facility] in Aug 2025: Mild diff atrophy, mild MVD Code(s): G30.9 - Alzheimer's disease, unspecified; F02.80 - Dementia in other diseases classified elsewhere, unspecified severity, without behavioral disturbance, psychotic disturbance, mood disturbance, and anxiety Category: Medical Qualifiers: Alzheimer's disease onset: late onset Dementia severity: moderate Dementia behavioral or psychological symptom: with anxiety Qualified Code(s): G30.1 - Alzheimer's disease with late onset; F02.B4 - Dementia in other diseases classified elsewhere, moderate, with anxiety Plan Impression: Moderately severe probably mostly Alzheimer dementia with behavioral symptoms of anxiety/mood Rec: a: Donepezil 10mg a day b: Memantine 5mg bid c: Continue Citaloprim 20mg in am d: Continue Mirtazapine 15mg at bedtime Orders: Orders EEG Routine Today G93.40 - Encephalopathy, unspecified Medications: New memantine 5 mg PO BID 180 tabs 0RF donepezil 10 mg PO BEDTIME 90 tabs 0RF Coding Level of Care Code Est Pt Level 3 (40717) Diagnoses Chronic migraine without aura, intractable, without status migrainosus G43.719 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
--- OUTSIDE RECORDS SUMMARY | 2025-09-27 18:52 | XMS_ITS | Data Portability ---
Author Organization [place] [facility] Address [address] [place] [address] Assessment Encounter Date Assessment Date Assessment LastModified [...] fall. She is going to follow-up with [facility] to reschedule her SI [...] pain, ? injection 2022 023 [email or web address] [facility], [address] [place], [address], 3 11:05:06 interventio nal radiologist referral - right hip intra-artic ular cortisone injection 2022 023 [email or web address] Not available 10:50:05 Procedures None recorded. Surgeries None recorded. Imaging XR, hip, unilateral, 2 or 3 view 2022 023 [email or web address] 3 [facility], [address], [place], [address], 3 16:11:58 XR, hip, unilateral, 2 or 3 view 2022 023 [email or web address] [facility], [address], [place], [address], 3 14:44:49 MRI, hip, w/o contrast 2022 023 [facility], [address] [place], [address], 3 11:48:27 Medication Orders None recorded. Patient TargetsNo targets recorded. Patient Instructions Encounter Date Encounter Id Patient Instructions Last Modified By Organization Details Last Modified Time 06/29/2023 [id number] views of the right hip including an AP pelvis were obtained on 06/29/2023 in the [place] office. Joint spaces well-maintained. Trace calcification projects adjacent to the superior lateral acetabulum. No acute fracture appreciated. Pubic symphysis intact. Visualized portions of the SI joints appear intact. Findings: Well-maintained joint space right hip. No evidence for acute fracture. Interpreted by: Carlos Ruiz MD Not available 06/29/2023 14:30:57 08/24/2023 [id number] views of the right hip were obtained today 08/24/2023 in the [place] office. Joint spaces well-maintained. No acute or [...] contr ast No observ ation record ed. [facility] [address] [place], [address], 04/22/2023 11:48:38 05/12/20 23 05/12/2023 injec tion, hip, fluor o tomeka nce (PROC ) No observ ation record ed. [email or web address] [facility] [address] [facility] [address], [place], [address], 05/12/2023 20:40:54 Result Notes None recorded. Problems Name Problem SNOMED Code Status Onset Date Resolution Date Notes Provider Name and Address Organization Details Recorded Time Pain of right hip joint 4862272914120 02 Active 2022 Carlos Ruiz MD [address] [facility] [address], [place], [address] , [place] [facility], [facility] 3 16:33:34 Pain in right sacroiliac joint 0632279237952 9107 Active 2022 Carlos Ruiz MD [address] [facility], [place], [address] , [place] [facility], [facility] 3 14:39:02 Problem Notes None recorded. Medical Equipment None Reported. Allergies Allergen ID Allergen Name Allergen Category Reaction Reaction Severity Criticality Documentation Date Start Date Code Code System Note Provider Name and Address Organization Details Recorded Time 3675 Imitrex medicatio n Not available Not available Not available 03/23/2023 85723 3 RxNorm Crystal Clark null, [place] [facility], [facility] 3 16:08:26 Medications Name Sig Start [...] Updated DateTime 03/23/2023 162.56 cm 19.7 kg/m2 38717.12 g Cristine Clark [facility] 03/23/2023 16:08:38 Date Recorded Body height Body mass index (BMI) Body weight Provider Name and Address Organization Details Last Updated DateTime 04/20/2023 162.56 cm 19.2 kg/m2 35847.35 g Cristine Clark [facility], P 04/20/2023 13:26:26 Date Recorded Body height Body mass index (BMI) Body weight Provider Name and Address Organization Details Last Updated DateTime 08/24/2023 162.56 cm 19.2 kg/m2 64099.35 g Rossy Dominguez [facility] 08/24/2023 13:20:08 Social History Question Answer Notes LastModified by Organizat ion Details LastModified Time Tobacco Smoking Status Former Smoker Cristine martinez, [facility], [facility] 03/23/2023 16:08:57 When Did You Quit Smoking? 11-15yearssi ncelastcigar ette [email or web address] Information not available 03/23/2023 Sex: Unknown Functional Status Question Answer Note LastModified by Organizat ion Details LastModified Time Do you use any illicit or recreational drugs? No [email or web address] Information not available 03/23/2023 Do you or have you ever used any other forms of tobacco or nicotine? No Information not available 03/23/2023 What is your level of alcohol consumption? None [email or web address] Information not available 03/23/2023 Mental Status None recorded. Family History Relationship Description Onset Age of this Age Resolved Age Notes LastModified by Organization Details LastModified Time Father Hyperlipidem ia [email or web address] Not available 2022 16:09:17 Father Family history of malignant neoplasm [email or web address] Not available 2022 16:09:38 Mother Hyperlipidem ia [email or web address] Not available 2022 16:09:17 Mother Family history of malignant neoplasm Not available 2022 16:09:38 Brother Family history of malignant neoplasm [email or web address] Not available 2022 16:09:38 Sister Family history of malignant neoplasm [email or web address] Not available 2022 16:09:38 Medical History Condition Response Cancer Y Gynecological HistoryNo gynecological history recorded. Obstetrics History GPAL:G 0 P 0 0 0 0 Past Encounters Encounter ID Performer Location Encounter Start Date Encounter Closed Date Diagnosis/Indication Diagnosis SNOMED-CT Code Diagnosis ICD10 Code Diagnosis IMO Codes Diagnosis Note [id number] MD LYRIC Vickers [facility] [address] [facility] [address] [place] [address] 03/23/2023 15:04:47 03/23/2023 16:41:16 Pain of right hip joint 5930874774 45413 M25.551 [id number] MD LYRIC Vickers [place] [address] [facility] [address] [place] [address] 04/20/2023 13:13:34 04/20/2023 13:51:56 Pain of right hip joint 5637144770 48138 M25.551 [id number] MD LYRIC Vickers [facility] [address] [facility] [address] [place] [address] 06/29/2023 14:14:00 06/29/2023 14:43:12 Pain of right hip joint 6619443384 34021 M25.551 Pain in ri ght sacroiliac joint 7025170417 1922518 M53.3 [id number] YOHANA GLASER [facility] [address] [facility] [address] [place] [address] 08/24/2023 13:13:05 08/24/2023 14:01:35 Pain of right hip joint 1263372079 69669 M25.551 Pain in ri ght sacroiliac joint 8521102583 8982180 M53.3 Health Concerns Section Related Observation LastModified by Organization Detai ls LastModified Time None Recorded Concern Status LastModified by Organization Details LastModified Time None Recorded Advance Directives Directive None Recorded Payers Insurance Date Sequence Insurance Name Policy Number Policy Banda Covered Member ID Banda Member ID Guarantor Name 08/21/2023 1 [facility] (MEDICARE REPLACEMENT/A DVANTAGE - HMO) [id number] Awilda aBez [id number] Awilda Baez Notes Date Note Type Note [...] artificial disc and cage. Carlos Ruiz MD [address] [place] [address], [address], [place] [facility] 03/26/2023 14:26:06 04/20/2023 text/html ROS as [...] Carlos Ruiz MD [address], [place], [address], [place] [facility] 04/20/2023 19:56:37 06/29/2023 text/html ROS as [...] artificial disc and cage. Carlos Ruiz MD [address] [place] [address], [place], [address], [place] [facility], [facility] 06/29/2023 15:19:00 08/24/2023 text/html ROS as [...] unable to get an injection done as [facility] due to scheduling conflicts [...] artificial disc and cage. PERCY SMILEY PA-C [address] [place] [address], [address], [place] [facility] 08/24/2023 21:49:15 OBGyn Episode No OBEpisode recorded.
--- OUTSIDE RECORDS SUMMARY | 2025-09-27 18:52 | XMS_ITS | Clinical Summary ---
Author Organization [facility] Address [address] [place] [address] Phone Care Team Providers Care Foundry Melt Supervisor Name Role Phone Keren Gates MD Primary Care Provider [phone] Surgical History Surgery Date Site/Laterality Comments BREAST LUMPECTOMY Medical History Medical History Date Comments Breast cancer ([facility] V24, [facility] V28) Social History Tobacco Use Types [...] for biopsy. PQRI CPT II 3342F Code 33189, 36774 PQRI 225 CPT II 7025F TISSUE DENSITY: There are scattered areas of fibroglandular density. (BI-RADS category B) IMPRESSION: Benign. BI-RADS CATEGORY: 2 - BENIGN RECOMMENDATION: Screening bilateral mammogram is recommended in 1 year. Mammo Location: [facility], [facility], [address] [place] [address] -------- FINAL REPORT -------- Dictated By: Migue Walker Dictated Date: 10/04/2024 10:18 ET Assigned Physician: Migue Walker Reviewed and Electronically Signed By: Migue Walker Signed Date: 10/04/2024 10:23 ET Workstation ID: [id number] Transcribed By: Self Edit Transcribed Date: 10/04/2024 [...] and CC projection is performed in the ITaoe 2000-D unit. Computer aided detection utilizing the [...] MLO and CC projection is performed in theAggregate Knowledgeographe 2000-D unit. Computer aided detection utilizing the SafeTec Compliance SystemsDsystem was utilized. FINDINGS: The breasts are again [...] for biopsy. PQRI CPT II 3342F Code 22880, 87924 PQRI 225 CPT II 7025F TISSUE DENSITY: There are scattered areas of fibroglandular density.(BI-RADS category B) IMPRESSION: Benign. BI-RADS CATEGORY: 2 - BENIGN RECOMMENDATION: Screening bilateral mammogram is recommended in 1 year. Mammo Location: [facility], [address] [place] [address] -------- FINAL REPORT -------- Dictated By: Migue Walker Dictated Date: 10/04/2024 10:18 ET Assigned Physician: Migue Walker Reviewed and Electronically Signed By: Migue Walker Signed Date: 10/04/2024 10:23 ET Workstation ID: [id number] Transcribed By: Self Edit Transcribed Date: 10/04/2024 10:18 ET Keren Gates MD IMG BI PROCEDURES Final Result from Last 3 Months or Most Recently Relevant to Health Maintenance Insurance [employer] MEDICARE Care Teams Foundry Melt Supervisor Relationship Specialty Start Date End Date Keren Gates MD [address] [place] [address] PCP - General Internal Medicine 09/26/24
--- OUTSIDE RECORDS SUMMARY | 2025-09-27 18:52 | XMS_ITS | Clinical Summary ---
Author Organization [facility] Address [address] [place] [address] Care Team Providers Care Visual Manager Name Role Phone Unknown, Primary Care Provider [...] age to complete this topic Care Teams Visual Manager Relationship Specialty Start Date End Date Unknown, PCP - General 05/08/23
== END 2025-09-27 16:24 | disposition home or self-care (01) ==
LOC: HO.HSM 15:55
PROVIDERS: PCP Internal Medicine; Visit Provider Psychiatry & Neurology Neurology
DX: G43.719 Chronic migraine without aura, intractable, without status migrainosus (principal); G30.1 Alzheimer's disease with late onset; F02.B4 Dementia in other diseases classified elsewhere, moderate, with anxiety
CPT/HCPCS: 99213